=== PATIENT | female | born 1960 | race Caucasian/White ===

== ENCOUNTER 2020-08-03 05:41 | Day surgery (SDC) | payer MEDICARE, BC ==
[~2020-08-03] VITALS: Ht 162.6 cm; Wt 109.1 kg
[~2020-08-03 05:41] MED LIST: CARDURA2 MG PO; COZAAR50 MG PO; LEXAPRO20 MG PO; METOPROLOL TART25 MG PO; MOBIC7.5 MG PO; TOPAMAX50 MG PO; XANAX0.5 MG PO
[2020-08-03 06:28] LABS: HEMATOCRIT 38.8 % (36.0-48.0); HEMOGLOBIN 12.3 g/dL (12-16); MCHC 31.7 g/dL (31.0-37.0); MCV 97.7 fL (80.0-100.0); MEAN PLATELET VOLUME 11.5 fL (7.4-10.4); RBC 3.97 10x6/uL (4.00-5.40); RDW 13.3 % (11.5-14.5)
[2020-08-03 06:59] VITALS: BP 144/79; BMI 41.3
--- NOTE | 2020-08-03 13:48 | HP ---
PATIENT: KYUNG CAZARES MEDICAL RECORD: [id number] ACCOUNT: [id number] LOCATION:[facility] : 56 ADMISSION DATE: 08/03/20 PCP: RADHA CAMACHO MD HISTORY AND PHYSICAL EXAMINATION PREOPERATIVE HISTORY AND PHYSICAL HISTORY: Kyung is 59. She has a left-sided neck mass found to be a parotid mass. FNAs suggested pleomorphic adenoma. She is being admitted for left superficial parotidectomy. PAST MEDICAL HISTORY: Hypertension, sleep apnea, anemia. PAST SURGICAL HISTORY: Includes , cholecystectomy, left shoulder surgery. CURRENT MEDICATIONS: Alprazolam, diclofenac, doxazosin, hydrochlorothiazide, losartan, metoprolol, topiramate. ALLERGIES: No known drug allergies. PHYSICAL EXAMINATION: GENERAL: She is healthy-appearing, developmentally normal. FACE: Normal, symmetric, no lesions. EYES: Sclerae and conjunctivae are normal. EARS: Canals and TMs normal. NOSE: No mass, polyps or drainage. ORAL CAVITY AND OROPHARYNX: Tongue protrudes in midline. Pharynx is normal. NECK: She had 2.5 cm mass in the left tail of the parotid. CHEST: Clear. CARDIOVASCULAR: Regular rate and rhythm, no murmur. EXTREMITIES: Normal. IMPRESSION: Left parotid mass. PLAN: Left superficial parotidectomy. TRANSINT:[id number] Voice Confirmation ID: [id number] DOCUMENT ID: [id number] ERIN JIMENEZ MD at 1348 CC: [id number] DICTATION DATE: 07/30/20 1111 PERSONAL INVESTMENT ADVISER: 07/30/20 [id number] [place] [address]
[2020-08-03 14:01] VITALS: BP 170/85
[2020-08-03 14:15] VITALS: BP 157/85
[2020-08-03 14:27] VITALS: BP 171/85; Ht 162.6 cm; Wt 109.1 kg
[2020-08-03 14:30] VITALS: BP 169/81
--- NOTE | 2020-08-03 14:54 | NUR ---
1400 RECEIVED FROM PACU TO ROOM 2237 ADMIT ASSESSMENT COMPLETE
--- NOTE | 2020-08-03 14:55 | NUR ---
0858 SPOUSE AT BEDSIDE
[2020-08-03 20:00] VITALS: BP 131/65
[2020-08-04] VITALS: BP 133/61
--- NOTE | 2020-08-04 03:49 | NUR ---
I have reviewed this patient and I concur with the Shift Assessment completed by the Licensed Practical Nurse today this shift.
[2020-08-04 04:00] VITALS: BP 136/64
[2020-08-04 08:56] VITALS: BP 148/70
--- NOTE | 2020-08-04 10:22 | NUR ---
0700 ASLEEP AWAKENS TO VOICE ASSESSMENT COOMPLETE OXANA DRAIN INTACT WITH BLOODY DRAINAGE NOTED LEFT NECT INCISION SITE SATISFACTORY NO DRAINAGE NOTED SUTURES INTACT
--- NOTE | 2020-08-04 10:23 | NUR ---
0755 C/O HEADACHE APAP 1000MG PO GIVEN
--- NOTE | 2020-08-04 11:36 | OP ---
PATIENT NAME: ROSA M CAZARES MEDICAL RECORD: [id number] :56 LOCATION:[id number] ADMISSION DATE: SURGEON: ERIN JIMENEZ MD DATE OF OPERATION: 08/03/2020 PREOPERATIVE DIAGNOSIS: Left parotid mass. POSTOPERATIVE DIAGNOSIS: Left parotid mass. PROCEDURE: Left superficial parotidectomy. SURGEON: Erin Jimenez MD ANESTHESIA: General orotracheal. BLOOD LOSS: Less than 20 cc. SPECIMENS: Left parotid with mass. FROZEN SECTION DIAGNOSIS: Pleomorphic adenoma. COMPLICATIONS: None. DISPOSITION: Recovery stable. DRAIN: 10-[place] Maxwell drain through a separate stab incision. PROCEDURE NOTE: She was brought to the operating room and placed in supine position, sedated and intubated by anesthesia. Head was turned to the right. The left neck and face was prepped and draped in the usual fashion to expose the corner of the eye and corner of the mouth. She was prepped and draped in the usual sterile fashion. The area of incision was injected with less than 2 mL 1% lidocaine with 1:100,000 epinephrine. An incision was made along the preauricular crease under the earlobe and curving down to a skin crease in the neck. This was taken down through the skin with a 15 blade and then taken down with cautery to the sternocleidomastoid inferiorly. Greater auricular nerve was divided sharply with a 15 blade and this was taken down through the tragal cartilage superiorly and then the skin flaps are elevated anteriorly using Metzenbaum scissors to double prong skin hooks to elevate anteriorly over the parotid fascia. Some Allis clamps were placed on the parotid gland posteriorly attached to the fascia. Couple of 2-0 silk stick ties on the flap anteriorly and a wet Ray-Reji was placed over that and then a single stick tie in the earlobe for retraction posteriorly. I then the SCM from the parotid gland with a blunt dissection posteriorly and dissected along the tragal cartilage superiorly down to the posterior belly of the digastric with bipolar cautery and sharp and blunt dissection and then dissected anteriorly into the gland at the location of the nerve. The nerve was identified, confirmed the marginal branch with the nerve stimulator, following the marginal branch anteriorly through the gland, splitting the gland above the mass. Following that all the way through the gland anteriorly and then following all the branch of the facial nerve inferiorly beneath the mass was fairly easily and then dissected the mass free with combination of scissors and bipolar cautery. This was sent for pathology which confirmed pleomorphic adenoma, benign consistent with a needle biopsy that was done preoperatively. Mass was completely excised. At this point, the wound was clean. It was irrigated with saline, rinsed, and OPERATIVE REPORT [id number] ROSA M CAZARES inspected. A drain was placed through a separate stab incision inferior to the wound. The incision was closed with interrupted subcutaneous 4-0 Vicryl and the skin was closed with 5-0 and 6-0 combination of running and interrupted Prolene. Steri-Strips were placed. A bulb was placed on the drain. She was awakened, extubated, and transported to recovery in good condition. No complications. TRANSINT:[id number] Voice Confirmation ID: [id number] DOCUMENT ID: [id number] ERIN JIMENEZ MD at 1136 CC: [id number] DICTATION DATE: 08/03/20 1324 APPRAISER [place]: 08/03/20 2320 [facility] [address] [id number]
[2020-08-04 12:20] VITALS: BP 134/67
--- NOTE | 2020-08-04 12:42 | NUR ---
1130 DR JIMENEZ AT BEDSIDE RREMOVING HER OXANA TO LEFT NECK SITE 2X2 GAUZE PLACED OVER SITE AND TAPED TO SKIN INSTRUCTED PT NOT TO SHOWER TODAY AND MAY REMOVE DRESSING TOMORROW DR JIMENEZ INSTRUCTED TO FOLLOW UP IN ONE WEEK D/C SALINE LOCK
--- NOTE | 2020-08-04 12:47 | NUR ---
1200 AMBULATING IN [place] WITH STUDENT NURSES AT SIDE TOLERATING WELL
--- NOTE | 2020-08-04 13:31 | NUR ---
1310 WRITTEN AND VERBAL DISCHARGE INSTRUCTIONS PROVIDED BOTH PT AND HER SPOUSE VERBALIZED UNDERSTANADING RX SENT TO PTS [facility] AND ONE SCRIPT HANDED TO PATIENT FOR DIFLUCAN TAKEN VIA WHEELCHAIR TO FRONT ENTRANCE WHERE SPOUSE PICKED HER UP.
== END 2020-08-04 13:10 | disposition home or self-care (01) ==
LOC: D.OPS 05:41 → D.MS 14:06 → D.OPS 08-04 13:10
PROVIDERS: Anesthesiology; ATTEND Otolaryngology
DX: D11.0 Benign neoplasm of parotid gland (principal); I10 Essential (primary) hypertension; G47.30 Sleep apnea, unspecified; D64.9 Anemia, unspecified